=== PATIENT | female | born 1950 | race Caucasian/White ===

== ENCOUNTER → 2016-06-04 | Outpatient (CLI) | payer OTHER, MEDICARE ==
[~2016-06-04] MED LIST: CENTRUM SILVER1 EAC4 PO; MAGOX 400400 MG PO; NAPROSYN500 MG PO; NORCO 5-325 TA1 EACH PO; PEPCID20 MG PO; PRILOSEC OTC20 MG PO; PRILOSEC20 MG PO; TUMS PO; VITAMIN D1000 UNI1 PO
== END ==
LOC: RAD 09:01
DX: R05 Cough (principal)

== ENCOUNTER → 2017-02-04 | Outpatient (CLI) | payer OTHER, MEDICARE | LOC: NUC 13:08 | DX: M81.0 Age-related osteoporosis without current pathological fracture (principal); M85.89 Other specified disorders of bone density and structure, multiple sites; Z78.0 Asymptomatic menopausal state ==

== ENCOUNTER → 2017-08-23 | Outpatient (CLI) | payer OTHER, MEDICARE ==
[~2017-08-23] VITALS: Ht 170.2 cm; Wt 59.0 kg
[~2017-08-23] MED LIST changes: +BIOTIN1000 MCG PO; +FIBER500 MG PO
--- NOTE | ~2017-08-23 | PATH ---
[facility] [address] [place] [address] PATHOLOGY RPT PROCEDURE Name: MAGUI BAIN Room #: REG CL Donta.#: [id number] Admission: 08/23/17 Date of : 46 Discharge: Report #: [id number] Path Case #: [id number] [facility] Accession Number: [id number] . 01 Material submitted: . RECTAL POLYP . 01 Clinical history: . hx of rectal bleeding Rectal polyp, hemorrhoids . 02 Diagnosis: Polyp, rectal polyp, endoscopic biopsy: - Tubular adenoma. - Negative for high grade dysplasia. (IUV:db; 08/26/2017) LBQ/08/26/2017 . 02 Electronically signed: . Ashley Peters MD, Pathologist NPI- [id number] . 01 Gross description: . The specimen is received in formalin, labeled "Magui Bain, BX of rectal polyp" and consists of a fragment of kim soft tissue measuring 0.5 x 0.2 x 0.1 cm. It is entirely submitted in A1. (SDY; 08/23/2017) SYU/SYU . 02 CPT . 679050 Performed at: [address], [place] [id number] MD Juancho Siddiqi MD Phone: [phone] Performed at: [address] [id number] MD Ashley Peters MD Phone: [phone]
--- NOTE | ~2017-08-23 | P ---
[facility] [place] [address] PROCEDURE REPORT Name: SHAANMAGUI MOLINA CHRISTIANA [facility] #[facility] [id number] Admission: 08/23/17 Attend Phys: Kaushik Garnica Discharge: Date of : 46 Report #: [id number] THIS REPORT FOR: //name// CC: Kaushik Schulte MD DATE OF SERVICE: 08/23/2017 PROCEDURE PERFORMED: Colonoscopy with biopsies. HISTORY OF PRESENT ILLNESS: The patient is a 67-year-old female with intermittent small amount of bright red blood per rectum. She denies any constipation or diarrhea. She denies any abdominal pain or anal pain. No family history of colon cancer. Plan is for colonoscopy. DESCRIPTION OF PROCEDURE: The risks and benefits of the procedure were explained to the patient, those risks including but not limited to bleeding, perforation, the risk of sedation. She understood these risks and gave informed consent. Sedation was given using propofol per Anesthesia. Next, a digital rectal exam was initially performed, which was normal. Next, using a standard Olympus colonoscope, the scope was placed in the patient's anus and advanced under direct vision to the cecum. The overall prep was excellent. The cecum and ileocecal valve were normal in appearance. Ascending, transverse, descending and sigmoid colon were all normal. In the rectum, a 3 mm sessile polyp was noted. This was removed with cold forceps, otherwise normal. On retroflexion, a tiny internal hemorrhoid was noted. No evidence of bleeding. Close examination of the anal canal showed no evidence of anal fissure. No external hemorrhoids were noted. The scope was then withdrawn and the procedure terminated. The patient tolerated the procedure well. IMPRESSION: 1. Small internal hemorrhoids. 2. Rectal polyp. 3. Otherwise, normal colonoscopy. RECOMMENDATIONS: 1. Await biopsy results. 2. If polyp is hyperplastic, repeat in 10 years; if adenomatous polyp, repeat in 5 years. 3. Suspect intermittent bright red blood per rectum from internal hemorrhoid, this is very small, would recommend a high-fiber diet and Analpram on a p.r.n. basis. [facility] [address] [place] [address] PROCEDURE REPORT Name: YINJULIETTEMAGUI [facility] Room #: REG [facility] Domingo#: [id number] Admission: 08/23/17 Attend Phys: Kaushik Garnica Discharge: Date of : 46 Report #: [id number] Thank you for allowing me to participate in her care. <ELECTRONICALLY SIGNED> By: Kaushik Ibanez MD 08/23/17 [id number] [id number] Kaushik Ibanez MD /nt
== END | disposition home or self-care (01) ==
LOC: GI 07:28
DX: D12.8 Benign neoplasm of rectum (principal); K64.8 Other hemorrhoids; K21.9 Gastro-esophageal reflux disease without esophagitis; Z98.890 Other specified postprocedural states; Z87.891 Personal history of nicotine dependence; Z79.899 Other long term (current) drug therapy
CPT/HCPCS: 62110; 62900

== ENCOUNTER → 2021-01-18 | Outpatient (CLI) | payer OTHER, MEDICARE | LOC: CAT 08:19 | DX: Z13.6 Encounter for screening for cardiovascular disorders (principal); E78.00 Pure hypercholesterolemia, unspecified; I25.10 Atherosclerotic heart disease of native coronary artery without angina pectoris ==

== ENCOUNTER → 2021-02-01 | Outpatient (CLI) | payer OTHER, MEDICARE | LOC: SJCVCIMAG 07:45 | PROVIDERS: ATTEND Family Medicine | DX: I08.1 Rheumatic disorders of both mitral and tricuspid valves (principal); I77.819 Aortic ectasia, unspecified site; E78.2 Mixed hyperlipidemia; Z79.899 Other long term (current) drug therapy; Z72.89 Other problems related to lifestyle ==

== ENCOUNTER → 2021-02-08 | Outpatient (CLI) | payer OTHER, MEDICARE | LOC: NUC 08:15 | PROVIDERS: ATTEND Family Medicine | DX: M81.0 Age-related osteoporosis without current pathological fracture (principal) ==